=== PATIENT | female | born 2000 | race Caucasian/White ===

== ENCOUNTER 2018-01-02 07:52 | Emergency (ER) | payer OTHER ==
[~2018-01-02] VITALS: Ht 177.8 cm; Wt 68.0 kg
[2018-01-02] MEDS ORDERED: ACETAMINOPHEN 325 MG TAB PO ONE (08:30)
[2018-01-02] MEDS ORDERED: ONDANSETRON HCL 4 MG ORAL DISINTEGRATING TAB PO ONE (08:30)
[2018-01-02] MEDS ORDERED: PROMETHAZINE HCL (IM) 25 MG/ML VIAL IM ONE (10:30)
--- NOTE | 2018-01-02 13:58 | Diagnostic Imaging Report ---
History: Fall hit back of head Comparison studies: None Technique: Axial images were obtained from the skull base to the vertex. Fall Coronal and sagittal reconstructions obtained from the axial data. Findings: Scalp/skull: No abnormalities. No fractures, blastic or lytic lesions. Extra-axial spaces: No masses. No fluid collections. Brain sulci: Appropriate for age. Ventricles: Normal in size and configuration. No hydrocephalus. Parenchyma: No abnormal densities. No masses, hemorrhage, acute or chronic cortical vascular insults. Sellar/suprasellar region: No abnormalities Craniocervical junction: Patent foramen magnum. No Chiari one malformation. IMPRESSION: No abnormalities. Preliminary findings discussed with FILI HAMMOND MD at 01/02/2018 11:[address] Mendez. Signed by: Dr. Carlos Villa M.D. on 01/02/2018 5:25 PM
== END 2018-01-02 12:18 | disposition home or self-care (01) ==
LOC: ER 07:52
DX: S06.0X0A Concussion without loss of consciousness, initial encounter (principal); W17.89XA Other fall from one level to another, initial encounter; Y93.B1 Activity, exercise machines primarily for muscle strengthening; Y92.219 Unspecified school as the place of occurrence of the external cause
CPT/HCPCS: 70450; 99284; J2550